=== PATIENT | female | born 1995 | race African-American/Black ===

== ENCOUNTER 2021-01-26 18:04 | Emergency (ER) | payer OTHER ==
[~2021-01-26] VITALS: Ht 162.6 cm; Wt 113.0 kg
[2021-01-26 18:51] LABS: BASOPHILS % (AUTO) 1 % (0-1); EOSINOPHILS % (AUTO) 2 % (1-7); LYMPHOCYTES % (AUTO) 32 % (22-44); MEAN CORPUSCULAR HEMOGLOBIN 29.5 pg (27.0-34.8); MEAN CORPUSCULAR HGB CONC 33.7 g/dL (32.4-35.8); MEAN PLATELET VOLUME 7.6 fL (7.4-10.4); MONOCYTES % (AUTO) 6 % (2-9); NEUTROPHILS % (AUTO) 60 % (42-75); PLATELET COUNT 398 x10^3/uL (130-400); RED BLOOD COUNT 4.52 x10^6/uL (3.82-5.3); RED CELL DISTRIBUTION WIDTH 14.3 % (9.6-15.2)
[2021-01-26 18:52] LABS: MD NO
[2021-01-26 18:58] LABS: ANION GAP 4 mmol/L (5-15); CALCIUM 8.7 mg/dL (8.5-10.1); CHLORIDE 107 mmol/L (98-107); CREATININE 0.65 mg/dL (0.55-1.02)
--- NOTE | 2021-01-26 19:03 | NUR ---
REPORT RECEVED FROM CHRISTINA SUN. PT AT CT
[2021-01-26 19:15] VITALS: BP 115/73
== END 2021-01-26 20:32 | disposition home or self-care (01) ==
LOC: ED 20:16
DX: S16.1XXA Strain of muscle, fascia and tendon at neck level, initial encounter (principal); R55 Syncope and collapse; R42 Dizziness and giddiness; R51.9 Headache, unspecified; M54.2 Cervicalgia; R94.31 Abnormal electrocardiogram [ECG] [EKG]; W01.0XXA Fall on same level from slipping, tripping and stumbling without subsequent striking against object, initial encounter; Y93.89 Activity, other specified; Y92.89 Other specified places as the place of occurrence of the external cause; Y99.8 Other external cause status
CPT/HCPCS: 36415; 70450; 72125; 80048; 82040; 84703; 85025; 93005; 99285

== ENCOUNTER 2021-02-01 15:17 | Emergency (ER) | payer OTHER ==
[~2021-02-01] VITALS: Ht 162.6 cm; Wt 131.9 kg
[2021-02-01 16:28] LABS: BASOPHILS % (AUTO) 0 % (0-1); EOSINOPHILS % (AUTO) 2 % (1-7); LYMPHOCYTES % (AUTO) 25 % (22-44); MEAN CORPUSCULAR HEMOGLOBIN 29.2 pg (27.0-34.8); MEAN CORPUSCULAR HGB CONC 33.5 g/dL (32.4-35.8); MEAN PLATELET VOLUME 7.8 fL (7.4-10.4); MONOCYTES % (AUTO) 4 % (2-9); NEUTROPHILS % (AUTO) 68 % (42-75); PLATELET COUNT 406 x10^3/uL (130-400); RED BLOOD COUNT 4.49 x10^6/uL (3.82-5.3); RED CELL DISTRIBUTION WIDTH 14.4 % (9.6-15.2)
[2021-02-01 16:35] LABS: ANION GAP 6 mmol/L (5-15); CALCIUM 8.8 mg/dL (8.5-10.1); CHLORIDE 106 mmol/L (98-107); CREATININE 0.87 mg/dL (0.55-1.02); MD NO
--- NOTE | 2021-02-01 17:08 | NUR ---
PT BACK FROM MRI
--- NOTE | 2021-02-01 17:14 | NUR ---
PT HAS CO NECK PAIN AND HEADACHE FOR 2 DAYS AFTER FALL. NO LOC.
--- NOTE | 2021-02-01 18:38 | NUR ---
PIV FOR BRAIN CT
--- NOTE | 2021-02-01 18:46 | NUR ---
Report from CHRISTINA Fabian. This RN to assume care.
[2021-02-01] MEDS ORDERED: SODIUM CHLORIDE FLUSH 10ML SYR IVF ONE (19:00)
[2021-02-01 19:56] VITALS: BP 103/63
--- NOTE | 2021-02-01 19:56 | NUR ---
Discharge instructions given. All questions and concerns addressed. Patient ambulatory with a steady gait. Belongings with patient.
== END 2021-02-01 20:03 | disposition home or self-care (01) ==
LOC: ED 16:18
DX: G35 Multiple sclerosis (principal); F07.81 Postconcussional syndrome; R51.9 Headache, unspecified; R11.2 Nausea with vomiting, unspecified; M54.2 Cervicalgia
CPT/HCPCS: 36415; 70496; 70551; 80048; 84703; 85025; 99285